=== PATIENT | female | born 1990 | race Caucasian/White ===

== ENCOUNTER 2017-07-05 06:40 | Inpatient (IN) | payer BC ==
[~2017-07-05] VITALS: Ht 172.7 cm; Wt 59.0 kg
[2017-07-05 07:53] LABS: PLATELET COUNT 233 x10^3mcL (130-400); RED CELL DISTRIBUTION WIDTH 13.5 % (11.5-14.5)
[2017-07-05 08:04] LABS: CALCIUM 8.7 mg/dL (8.5-10.1); CARBON DIOXIDE 24.6 mmol/L (21-32); CHLORIDE SERUM 102 mmol/L (98-107); CREATININE SERUM 0.9 mg/dL (0.6-1.0); GFR1 > 60 mL/min; GLUCOSE SERUM 128 mg/dL (74-106); SODIUM SERUM 136 mmol/L (136-145)
[2017-07-05 08:10] LABS: ALKALINE PHOSPHATASE 59 U/L (46-116); ALT/SGPT 11 U/L (14-59); AMYLASE 27 U/L (25-115); AST/SGOT 9 U/L (15-37); BILIRUBIN TOTAL 1.52 mg/dL (0.20-1.00); LIPASE 59 IU/L (73-393); TOTAL PROTEIN, SERUM 7.8 g/dL (6.4-8.2)
[2017-07-05 09:01] LABS: BAND NEUTROPHIL 5 % (0-10); BASOPHIL 0 % (0-2); MONOCYTE 5 % (0-7); SEGMENTED NEUTROPHILS 87 % (37-75)
[2017-07-05 10:24] VITALS: Ht 172.7 cm; Wt 59.0 kg
[2017-07-05 10:47] VITALS: BP 100/60
[2017-07-05 11:05] LABS: FREE T4 1.51 ng/dL (0.76-1.46); FREE THYROXINE INDEX 3.4 ug/dL (1.4-4.5); T4(THYROXINE) 9.2 ug/dL (4.7-13.3)
[2017-07-05 11:06] LABS: T3 TOTAL 0.65 ng/mL
[2017-07-05 11:53] VITALS: BP 100/60
[2017-07-05 12:26] LABS: microscopic required? YES
[2017-07-05 12:27] LABS: urine erythrocyte 2+ (NEGATIVE)
[2017-07-05 12:29] LABS: MAGNESIUM 2.1 mg/dL (1.8-2.4); PHOSPHOROUS 2.4 mg/dL (2.5-4.9)
[2017-07-05 12:35] LABS: CHOLESTEROL/HDL RATIO 1.7
[2017-07-05 12:38] LABS: AMPHETAMINE QUAL UR NONE DETECTED (NEG <=1000)
[2017-07-05 18:00] VITALS: BP 109/59
[2017-07-05 20:57] VITALS: BP 102/51
[2017-07-06 05:22] VITALS: BP 104/56
[2017-07-06 06:16] LABS: BASOPHIL % 0.2 % (0-2); PLATELET COUNT 177 x10^3mcL (130-400); RED CELL DISTRIBUTION WIDTH 13.4 % (11.5-14.5)
[2017-07-06 07:04] LABS: CARBON DIOXIDE 26.5 mmol/L (21-32); CHLORIDE SERUM 105 mmol/L (98-107); CREATININE SERUM 0.7 mg/dL (0.6-1.0); GFR1 > 60 mL/min; GLUCOSE SERUM 120 mg/dL (74-106); MAGNESIUM 2.2 mg/dL (1.8-2.4); PHOSPHOROUS 3.1 mg/dL (2.5-4.9); POTASSIUM SERUM 3.8 mmol/L (3.5-5.1); SODIUM SERUM 138 mmol/L (136-145)
[2017-07-06 09:35] VITALS: BP 103/59
[2017-07-06 18:23] VITALS: BP 110/65
[2017-07-06 23:08] VITALS: BP 96/61
[2017-07-07 06:07] VITALS: BP 107/56
[2017-07-07 06:19] LABS: BASOPHIL % 0.1 % (0-2); PLATELET COUNT 196 x10^3mcL (130-400); RED CELL DISTRIBUTION WIDTH 13.8 % (11.5-14.5)
[2017-07-07 06:34] LABS: CALCIUM 7.8 mg/dL (8.5-10.1); CARBON DIOXIDE 26.3 mmol/L (21-32); CHLORIDE SERUM 105 mmol/L (98-107); CREATININE SERUM 0.7 mg/dL (0.6-1.0); GFR1 > 60 mL/min; GLUCOSE SERUM 99 mg/dL (74-106); POTASSIUM SERUM 3.4 mmol/L (3.5-5.1); SODIUM SERUM 140 mmol/L (136-145)
[2017-07-07 10:36] VITALS: BP 113/70
[2017-07-07 12:00] VITALS: BP 112/67
[2017-07-07 17:05] VITALS: BP 100/57
[2017-07-07 20:50] VITALS: BP 107/44
[2017-07-08 05:24] VITALS: BP 103/65
[2017-07-08 06:03] LABS: BASOPHIL % 0.2 % (0-2); PLATELET COUNT 236 x10^3mcL (130-400); RED CELL DISTRIBUTION WIDTH 13.7 % (11.5-14.5)
[2017-07-08 06:09] LABS: CALCIUM 7.9 mg/dL (8.5-10.1); CHLORIDE SERUM 103 mmol/L (98-107); CREATININE SERUM 0.6 mg/dL (0.6-1.0); GFR1 > 60 mL/min; GLUCOSE SERUM 100 mg/dL (74-106); POTASSIUM SERUM 3.2 mmol/L (3.5-5.1); SODIUM SERUM 137 mmol/L (136-145)
[2017-07-08 09:55] VITALS: BP 104/61
[2017-07-08 17:02] VITALS: BP 103/66
[2017-07-08 21:16] VITALS: BP 107/62
[2017-07-09 05:13] VITALS: BP 112/69
[2017-07-09 06:55] LABS: BASOPHIL % 0.4 % (0-2); PLATELET COUNT 261 x10^3mcL (130-400); RED CELL DISTRIBUTION WIDTH 13.7 % (11.5-14.5)
[2017-07-09 07:10] LABS: CALCIUM 8.4 mg/dL (8.5-10.1); CARBON DIOXIDE 28.6 mmol/L (21-32); CHLORIDE SERUM 102 mmol/L (98-107); CREATININE SERUM 0.6 mg/dL (0.6-1.0); GFR1 > 60 mL/min; GLUCOSE SERUM 108 mg/dL (74-106); SODIUM SERUM 137 mmol/L (136-145)
[2017-07-09 09:15] VITALS: BP 115/73
[2017-07-09] MEDS ORDERED: CIPROFLOXACIN500 MG PO (10:49)
[2017-07-09] MEDS ORDERED: FLA500 PO (10:54)
[2017-07-09] MEDS ORDERED: BD LACTINEX1.4 MG PO (10:55)
[2017-07-09] MEDS ORDERED: HYDROCODONE BIT1 T52 PO (10:56)
[2017-07-09 13:03] VITALS: BP 115/73
== END 2017-07-09 13:58 | disposition home or self-care (01) | DRG 853 ==
LOC: ED 06:40 → MU 09:24 → DU 09:24 → MU 07-06 11:39
PROVIDERS: Emergency Medicine; Family Medicine Addiction Medicine; ADMIT Family Medicine
PROC: 0WHG03Z Insertion of Infusion Device into Peritoneal Cavity, Open Approach (ICD-10-PCS; 2017-07-05)
PROC: 0DTJ4ZZ Resection of Appendix, Percutaneous Endoscopic Approach (ICD-10-PCS; principal; 2017-07-05 11:00)
DX: A41.9 Sepsis, unspecified organism (principal); K35.2 Acute appendicitis with generalized peritonitis; N17.0 Acute kidney failure with tubular necrosis; R65.20 Severe sepsis without septic shock; E83.51 Hypocalcemia; R31.9 Hematuria, unspecified; D64.9 Anemia, unspecified; E83.39 Other disorders of phosphorus metabolism; E80.6 Other disorders of bilirubin metabolism
CPT/HCPCS: 82962; 83880; 84439; 94150; G0480; J0330; J1170; J2001; J2270; J2405; J2543; J2704; J2710; J3010; J3480; J3490; J7030; J7120; Q0092; Q9967